=== PATIENT | female | born 1975 | race Caucasian/White ===

== ENCOUNTER 2017-04-22 17:20 | Emergency (ER) | payer OTHER, MEDICARE ==
[~2017-04-22] VITALS: Ht 162.6 cm; Wt 75.3 kg
[~2017-04-22 17:20] MED LIST: BENZTROPINE1 MG PO; CAMILA0.35 MG PO; FLEXERIL 10MG (10 MG PO; FLUVOXAMINE100 MG PO; HALDOL 5MG TABLE5 MG PO; LITHIUM CARBON300 M3 PO; MOTRIN800 MG PO; OXYBUTYNIN CHLOR5 MG PO; TRIAMCINOLONE A15 G1 TOP; VICODIN5-300 PO
[2017-04-22 17:26] VITALS: BP 126/86
[2017-04-22] MEDS ORDERED: CLINDAMYCIN HC300 M1 PO (22:22)
[2017-04-22] MEDS ORDERED: TYLENOL WITH C1 EACH PO (22:22)
== END 2017-04-22 18:00 | disposition admitted as inpatient to this hospital (09) ==
LOC: ERH 17:20
DX: K08.89 Other specified disorders of teeth and supporting structures (principal)

== ENCOUNTER 2017-04-22 22:04 | Emergency (ER) | payer OTHER, MEDICARE ==
[~2017-04-22] VITALS: Ht 162.6 cm; Wt 74.8 kg
[2017-04-22 22:07] VITALS: BP 147/91
--- NOTE | 2017-04-22 22:18 | ED THROAT/DENTAL COMPLAINT ---
History of Present Illness General Chief Complaint: Sore Throat, Dental Pain Stated Complaint: PT HAS FOUR CRACK TEETH Source: patient, old records Exam Limitations: no limitations Vital Signs & Intake/Output Vital Signs & Intake/Output Vital Signs Date Time Temp Pulse Resp B/P B/P Pulse O2 O2 Flow FiO2 Mean Ox Delivery Rate 04/227 97.9 80 18 147/91 98 Room Air ED Intake and Output 04/23 0000 04/22 1200 Intake Total Output Total Balance Patient 165 lb Weight Allergies Coded Allergies: beeswax (Severe, ANAPHYLAXIS 06/11/16) venom-honey bee (BEE VENOM (HONEY BEE)) (Severe, ANAPHYLAXIS 06/11/16) Penicillins (MOUTH INFECTION 06/11/16) Reconcile Medications Benztropine Mesylate (Benztropine) 1 MG TAB 1 TAB PO BID MENTAL HEALTH ( Reported) Clindamycin HCl 300 MG CAPSULE 1 CAP PO TID dental Cyclobenzaprine (Flexeril 10MG (ER)) 10 MG TAB 1 TAB PO TID PRN PAIN Fluvoxamine Maleate (Fluvoxamine) 100 MG TABLET 1 TAB PO BID MENTAL HEALTH ( Reported) Haloperidol (Haldol 5MG Tablet) 5 MG TABLET 15 MG PO QPM MENTAL HEALTH ( Reported) Ibuprofen (Motrin) 800 MG TAB 1 TAB PO Q6HR PRN PAIN [place] Carbonate ([place] Carbonate 300MG Tab.) 300 MG CAPSULE 3 TAB PO DAILY MENTAL HEALTH (Reported) Norethindrone (Myranda) 0.35 MG TABLET 1 TAB PO DAILY CONTROL (Reported) Oxybutynin Chloride 5 MG TABLET 1 TAB PO DAILY BLADDER (Reported) Triamcinolone Acetonide 15 GM CREAM..G. 1 DENNIS TOP BID PRN RASH/BEE STING Tylenol With Codeine (Tylenol With Codeine #3 Tablet) 300 MG-30 MG TABLET 1 TAB PO BIDP PRN pain Triage Note: PT COMPLAINS OF R LOWER DENTAL PAIN FOR A FEW DAYS, TAKING MOTRIN WITH NO RELIEF Triage Nurses Notes Reviewed? yes Onset: Gradual Duration: week(s): (1), constant Timing: recent history Injury Environment: home Severity: moderate Severity Numbers: 10 Modifying Factors: Worsens With: eating. Associated Symptoms: DENIES : No Patient currently breastfeeds: No HPI: 41-year-old female presents complaining of right lower dental pain for the past 1 week. She has a history of chronic pain however is not called her dentist regarding new symptoms. No recent trauma no fever chills sore throat difficult swallowing. She's been taking ibuprofen with no improvement. No fever no chills no other modifying factors or associated symptoms. (MAURICE FRENCH) Past History Travel History Traveled to [place] past 21 day No Medical History Any Pertinent Medical History? see below for history Neurological: NONE EENT: NONE Cardiovascular: NONE Respiratory: asthma Gastrointestinal: NONE Hepatic: NONE Renal: NONE Musculoskeletal: NONE Psychiatric: bipolar disease, schizo affective disorder Endocrine: NONE Blood Disorders: NONE Cancer(s): NONE ACCOUNT SUPPORT MANAGER/Reproductive: NONE Tetanus Vaccine: 08/01/12 Surgical History Surgical History: non-contributory Psychosocial History What is your primary language Estonian Tobacco Use: Never used ETOH Use: denies use Illicit Drug Use: denies illicit drug use Family History Hx Contributory? No (MAURICE FRENCH) Review of Systems Review of Systems Constitutional: Reports: see HPI. All Other Systems: Reviewed and Negative Comments Review of systems: See HPI, All other systems negative. Constitutional, no chills no fever, no malaise HEENT: no sore throat no congestion Cardiovascular: No chest pain , no palpitation Skin: no rashes, no change in skin Respiratory: No dyspnea no cough GI: No nausea no vomiting, no diarrhea Muscle skeletal: No joint pain, no back pain, no neck pain, Neurologic: No numbness no headache Psych: No stress Heme/endocrine: No bruising no bleeding Immunology: No lymphadenopathy (MAURICE FRENCH) Physical Exam Physical Exam General Appearance: well developed/nourished, no apparent distress, alert, awake Mouth/Throat: pharynx normal Comments: Well-developed well-nourished patient in no apparent distress. Head/Face: Atraumatic, no maxillary/frontal sinus tenderness, no facial swelling Eyes: PERRL, EOMI, no conjunctival injection Ear:External auditory canals clear, no erythema, no FB. Nose: atraumatic.Normal inspection: Throat: Moist mucous membranes.Pharynx normal. No pharyngeal erythema/exudate seen. No stridor/drooling or assymetry. No swelling or edema. Poor dentition no gingival abscess Neck: Supple, no lymphadenopathy, FROMFROM Back: FROM Cardiovascular: Regular rate and rhythms Respiratory:. No respiratory distress. Patient speaking in full complete sentences. Breath sounds clear to auscultation bilaterally: NO W/R/R Extremities: full range of motion Neuro: awake, alert, and oriented to person, place and time. There were no obvious focal neurologic abnormalities. Skin: Warm & dry;No appreciable rash on exposed skin Psych: Mood affect normal, normal memory normal judgment. Core Measures ACS in differential dx? No Severe Sepsis Present: No Septic Shock Present: No (MAURICE FRENCH) Progress Differential Diagnosis: epiglottitis, Ludwigs angina, odontogenic abscess, cisco- tonsillar abscess, strep pharyngitis Plan of Care: I discussed with the patient at length all of their results. I had an extensive conversation regarding need for close follow up with their primary care physician this week as well as return precautions. I answered all of their questions, they feel comfortable with the plan and follow-up care. I discussed with the patient/family the medications that they will receive. I gave them signs and symptoms that could indicate an adverse reaction. I have advised them to limit their activities until they can see how they respond to the medication. (MAURICE FRENCH) Departure Departure Time of Disposition: 2220 Disposition: HOME OR SELF CARE Condition: Stable Clinical Impression Primary Impression: Pain, dental Referrals: MEG SELF APRN (PCP/Family) Additional Instructions: soft diet, follow up with your dentist on tuesday. Clindamycin as directed Tylenol codeine for breakthrough pain is cautious as a narcotic highly addictive no driving or drinking alcohol while taking. Departure Forms: Customer Survey General Discharge Information Prescriptions: Current Visit Scripts Tylenol With Codeine (Tylenol With Codeine #3 Tablet) 1 TAB PO BIDP PRN pain #10 TAB Clindamycin HCl 1 CAP PO TID #21 CAP (MAURICE FRENCH) PA/ENGLISH COMPOSITION INSTRUCTOR Co-Sign Statement Statement: ED Attending supervision documentation- [] I saw and evaluated the patient. I have also reviewed all the pertinent lab results and diagnostic results. I agree with the findings and the plan of care as documented in the PA's/ENGLISH COMPOSITION INSTRUCTOR's documentation. [X] I have reviewed the ED Record and agree with the PA's/ENGLISH COMPOSITION INSTRUCTOR's documentation. [] Additions or exceptions (if any) to the PAs/ENGLISH COMPOSITION INSTRUCTOR's note and plan are summarized below: [] (ALPA PARRY,MADHU Johnson)
[2017-04-22] MEDS ORDERED: CLINDAMYCIN HC300 M1 PO (22:22)
[2017-04-22] MEDS ORDERED: TYLENOL WITH C1 EACH PO (22:22)
== END 2017-04-22 22:44 ==
LOC: ERH 22:04
DX: K08.89 Other specified disorders of teeth and supporting structures (principal)